=== PATIENT | female | born 1980 | race African-American/Black ===

== ENCOUNTER 2020-07-11 07:45 | Emergency (ER) | payer MEDICAID, OTHER ==
[~2020-07-11] VITALS: Ht 165.1 cm; Wt 150.0 kg
[2020-07-11] MEDS ORDERED: BACITRACIN ZINC OINT UDPKT TOP ONE (09:00)
[2020-07-11] MEDS ORDERED: HYDROCODONE/ACETAMINOPHEN 5/325MG TABLET PO STA (09:25)
[2020-07-11 09:54] LABS: BASOPHILS % 0.8 % (0.0-2.0); EOSINOPHILS % 0.2 % (0.0-5.0); HEMATOCRIT. 35.8 % (36.0-48.0); HEMOGLOBIN. 11.6 g/dL (12.0-16.0); LYMPHOCYTES % 14.8 % (20.0-50.0); MEAN CORPUSCULAR HEMOGLOBIN 23.6 pg (28.0-32.0); MEAN CORPUSCULAR VOLUME 72.7 fL (81.0-99.0); MEAN PLATELET VOLUME 9.4 fl (7.4-10.4); MONOCYTES % 5.7 % (2.0-8.0); NEUTROPHILS % 78.5 % (40.0-76.0); PLATELET 226 x1000/uL (130-400); RED BLOOD CELL COUNT 4.92 mill/uL (4.2-5.4); RED CELL DISTRIBUTION WIDTH 20.9 % (11.6-14.6)
[2020-07-11 10:01] LABS: CHLORIDE 105 mEq/L (98-107)
[2020-07-11 10:10] LABS: HCG SCREEN NEGATIVE
[2020-07-11] MEDS: LIDOCAINE 1%/EPI 1:100,000 10 ML VIAL IJ ONE ×2 (11:37→11:38)
[2020-07-11 13:01] VITALS: BP 132/78
== END 2020-07-11 13:02 | disposition home or self-care (01) ==
LOC: ER 08:04
DX: S91.011A Laceration without foreign body, right ankle, initial encounter (principal); S30.1XXA Contusion of abdominal wall, initial encounter; I25.10 Atherosclerotic heart disease of native coronary artery without angina pectoris; V49.40XA Driver injured in collision with unspecified motor vehicles in traffic accident, initial encounter; Y93.89 Activity, other specified; Y92.89 Other specified places as the place of occurrence of the external cause; Y99.8 Other external cause status
CPT/HCPCS: 12002; 36415; 73610; 74177; 80053; 84703; 85025; 99285; J3490

== ENCOUNTER 2020-07-15 16:42 | Emergency (ER) | payer OTHER ==
[~2020-07-15] VITALS: Ht 154.9 cm; Wt 174.5 kg
[2020-07-15 18:42] VITALS: BP 168/83
== END 2020-07-15 18:43 | disposition home or self-care (01) ==
LOC: ER 16:42
DX: S91.011D Laceration without foreign body, right ankle, subsequent encounter (principal); I25.10 Atherosclerotic heart disease of native coronary artery without angina pectoris; Z48.00 Encounter for change or removal of nonsurgical wound dressing; Z90.89 Acquired absence of other organs; X58.XXXD Exposure to other specified factors, subsequent encounter
CPT/HCPCS: 99281

== ENCOUNTER 2020-07-26 15:30 | Emergency (ER) | payer OTHER ==
[~2020-07-26] VITALS: Ht 154.9 cm; Wt 170.0 kg
[2020-07-26 15:34] VITALS: BP 144/88
== END 2020-07-26 15:46 | disposition home or self-care (01) ==
LOC: ER 15:30
DX: Z48.00 Encounter for change or removal of nonsurgical wound dressing (principal); I25.10 Atherosclerotic heart disease of native coronary artery without angina pectoris; E03.9 Hypothyroidism, unspecified; Z98.890 Other specified postprocedural states
CPT/HCPCS: 99281

== ENCOUNTER 2020-08-02 22:52 | Emergency (ER) | payer OTHER ==
[~2020-08-02] VITALS: Ht 154.9 cm; Wt 182.0 kg
[2020-08-03 00:42] LABS: EOSINOPHILS % 0.3 % (0.0-5.0); HEMATOCRIT. 37.7 % (36.0-48.0); HEMOGLOBIN. 12.2 g/dL (12.0-16.0); MEAN CORPUSCULAR HEMOGLOBIN 23.6 pg (28.0-32.0); MEAN CORPUSCULAR VOLUME 73.2 fL (81.0-99.0); MEAN PLATELET VOLUME 9.6 fl (7.4-10.4); MONOCYTES % 5.9 % (2.0-8.0); NEUTROPHILS % 75.8 % (40.0-76.0); PLATELET 261 x1000/uL (130-400); RED BLOOD CELL COUNT 5.16 mill/uL (4.2-5.4); RED CELL DISTRIBUTION WIDTH 21.7 % (11.6-14.6)
[2020-08-03 00:46] LABS: CHLORIDE 105 mEq/L (98-107)
[2020-08-03] MEDS ORDERED: BACITRACIN ZINC OINT UDPKT TOP ONE (01:15)
[2020-08-03] MEDS ORDERED: ACETAMINOPHEN 325MG TABLET PO ONE (01:15)
[2020-08-03 01:23] VITALS: BP 135/85
== END 2020-08-03 02:11 | disposition home or self-care (01) ==
LOC: ER 22:52
DX: S81.811A Laceration without foreign body, right lower leg, initial encounter (principal); X58.XXXA Exposure to other specified factors, initial encounter; Y93.89 Activity, other specified; Y92.89 Other specified places as the place of occurrence of the external cause; Y99.8 Other external cause status; I25.10 Atherosclerotic heart disease of native coronary artery without angina pectoris; Z98.890 Other specified postprocedural states; L03.116 Cellulitis of left lower limb; L03.115 Cellulitis of right lower limb
CPT/HCPCS: 36415; 80053; 85025; 99283